=== PATIENT | female | born 1965 | race Caucasian/White ===

== ENCOUNTER → 2016-08-16 | Outpatient (CLI) | payer OTHER | LOC: MAMO 08-09 10:00 | DX: Z12.31 Encounter for screening mammogram for malignant neoplasm of breast (principal) | CPT/HCPCS: G0202 ==

== ENCOUNTER → 2020-05-15 | Outpatient (CLI) | payer OTHER | LOC: MAMO 14:29 | DX: N63.20 Unspecified lump in the left breast, unspecified quadrant (principal); Z78.0 Asymptomatic menopausal state | CPT/HCPCS: 76641-LT; 77065; G0279 ==

== ENCOUNTER → 2020-07-12 | Outpatient (CLI) | payer OTHER | LOC: KOH-I 12:59 | DX: Q67.5 Congenital deformity of spine (principal) | CPT/HCPCS: 72082 ==

== ENCOUNTER → 2021-02-12 | Outpatient (CLI) | payer OTHER | LOC: HEART 5 02-07 10:00 | DX: R42 Dizziness and giddiness (principal); R00.2 Palpitations ==